=== PATIENT | female | born 1995 | race Hispanic/Latino ===

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

== ENCOUNTER 2017-01-06 14:10 | Emergency (ER) | payer MEDICAID ==
[2017-01-06 14:11] VITALS: BMI 23.0
[2017-01-06 14:35] VITALS: BP 134/74; RESP 20
--- NOTE | 2017-01-06 15:01 | ED PDOC ---
HPI: CCC, URI, Sore Throat Time Seen by Provider: 01/06/17 14:44 Chief Complaint (Nursing): Fever Chief Complaint (Provider): Fever History Per: Patient History/Exam Limitations: no limitations Onset/Duration Of Symptoms: Days Current Symptoms Are (Timing): Still Present Additional Complaint(s): 21 y/o female with a past medical history of Type 1 Diabetes who presents to the emergency department with a complaint of a fever, sore throat, body aches, ear pain, and cough since yesterday, 01/05/2017. States pain with swallowing. Reports taking Dayquil today around 11 am. Denies nausea, vomiting, diarrhea, chest pain, shortness of breath, or vision changes. PMD: Dr. Stanley Cox MD Past Medical History Reviewed: Historical Data, Nursing Documentation, Vital Signs Vital Signs: Last Vital Signs Temp 99.3 F 01/06/17 14:33 Pulse 108 H 01/06/17 14:33 Resp 20 01/06/17 14:33 BP 134/74 01/06/17 14:33 Pulse Ox 99 01/06/17 15:46 - Medical History PMH: Diabetes (type I) Denies: Chronic Kidney Disease - Family History Family History: States: Unknown Family Hx, Hypertension Denies: Diabetes - Living Arrangements Living Arrangements: With Family - Immunization History Hx Tetanus Toxoid Vaccination: Yes Hx Influenza Vaccination: Yes Hx Pneumococcal Vaccination: No - Home Medications Home Medications: Ambulatory Orders Medication Instructions Recorded Insulin Lispro [humALOG] 03/14/16 Dicyclomine [Bentyl] 20 mg PO Q8 PRN #30 tab 08/13/16 Ondansetron ODT [Zofran ODT] 4 mg PO TID #21 odt 08/13/16 Dicyclomine [Bentyl] 20 mg PO BID PRN #30 tab 10/16/16 Omeprazole Magnesium [Prilosec Otc] 20 mg PO DAILY #30 tcp 10/16/16 Ondansetron [Zofran] 4 mg PO Q8H PRN #30 tab 10/16/16 Famotidine [Pepcid] 20 mg PO Q12 #20 tab 12/29/16 Ondansetron [Zofran] 4 mg PO Q8H #10 tab 12/29/16 Azithromycin [Zithromax] 500 mg PO DAILY 5 Days 01/06/17 Ibuprofen [Motrin] 600 mg PO TID 7 Days 01/06/17 - Allergies Allergies/Adverse Reactions: Allergies Allergy/AdvReac Type Severity Reaction Status Date / Time Penicillins Allergy unknown Verified 01/06/17 14:32 Review of Systems ROS Statement: Except As Marked, All Systems Reviewed And Found Negative Constitutional: Positive for: Fever, Other (Body aches) Eyes: Negative for: Vision Change ENT: Positive for: Ear Pain, Throat Pain (Sore throat; able to swallow with pain ) Cardiovascular: Negative for: Chest Pain Respiratory: Positive for: Cough. Negative for: Shortness of Breath Gastrointestinal: Negative for: Nausea, Vomiting, Diarrhea Physical Exam - Reviewed Nursing Documentation Reviewed: Yes Vital Signs Reviewed: Yes - Physical Exam Appears: Positive for: Non-toxic, No Acute Distress Head Exam: Positive for: ATRAUMATIC, NORMAL INSPECTION, NORMOCEPHALIC Skin: Positive for: Normal Color, Warm, Dry Eye Exam: Positive for: Normal appearance. Negative for: Conjunctival injection ENT: Positive for: Pharyngeal Erythema (Mild). Negative for: Normal ENT Inspection, Tonsillar Exudate (No tonsillar enlargement), Other (No uvula deviation) Neck: Positive for: Normal, Painless ROM, Supple Cardiovascular/Chest: Positive for: Regular Rate, Rhythm. Negative for: Murmur Respiratory: Positive for: Normal Breath Sounds. Negative for: Accessory Muscle Use, Respiratory Distress Gastrointestinal/Abdominal: Positive for: Normal Exam, Soft. Negative for: Tenderness Back: Positive for: Normal Inspection. Negative for: L CVA Tenderness, R CVA Tenderness Extremity: Positive for: Normal ROM. Negative for: Pedal Edema Neurologic/Psych: Positive for: Alert, Oriented - Laboratory Results Interpretation Of Abn Labs: strep pos - ECG O2 Sat by Pulse Oximetry: 99 (RA) Pulse Ox Interpretation: Normal - Progress ED Course And Treament: 1626: Strep po. Fu with pcp. AAOx3. Tolerated PO. Rx antibiotics. Medical Decision Making Medical Decision Making: Time: 14:44 Initial impression: Cough Initial plan: --AccuCheck: 126 --ED Urine (POC) --Motrin 600 mg PO --Rapid Strep Group --Revaluation Time: 15:08 --Group A Beta Strep Ag: Positive Scribe Attestation: Documented by Heidy Estevez, acting as a scribe for Jose Rios MD. Provider Scribe Attestation: All medical record entries made by the Scribe were at my direction and personally dictated by me. I have reviewed the chart and agree that the record accurately reflects my personal performance of the history, physical exam, medical decision making, and the department course for this patient. I have also personally directed, reviewed, and agree with the discharge instructions and disposition. Disposition - Clinical Impression Clinical Impression: Strep pharyngitis - Patient ED Disposition Is Patient to be Admitted: No Counseled Patient/Family Regarding: Studies Performed, Diagnosis, Need For Followup, Rx Given - Disposition Referrals: [facility] [Outside] - 01/07/17 Disposition: Routine/Home Disposition Time: 16:27 Condition: STABLE Additional Instructions: Return if not better in 3 days. Prescriptions: Azithromycin [Zithromax] 500 mg PO DAILY 5 Days Ibuprofen [Motrin] 600 mg PO TID 7 Days Instructions: Pharyngitis (ED) Forms: [employer] ([place])
[2017-01-06 16:50] VITALS: PULSE 90; TEMP 98.2; O2SAT 100
== END 2017-01-06 16:49 | disposition home or self-care (01) ==
LOC: H.ER 14:10
DX: J02.0 Streptococcal pharyngitis (principal); E11.9 Type 2 diabetes mellitus without complications; Z79.4 Long term (current) use of insulin; Z88.0 Allergy status to penicillin

== ENCOUNTER 2017-01-24 08:08 | Emergency (ER) | payer MEDICAID ==
[2017-01-24 08:16] VITALS: BMI 22.1
[2017-01-24 08:17] VITALS: BP 114/50; PULSE 89; RESP 19; TEMP 98.7; O2SAT 100
--- NOTE | 2017-01-24 09:13 | ED PDOC ---
Hyperglycemia/Hypoglycemia Time Seen by Provider: 01/24/17 09:03 Chief Complaint (Nursing): High Blood Sugar : The patient does not have any of the infectious symptoms listed except for those marked. Additional Complaint(s): 21F c/o cold symptoms- runny nose, sore throat, dry cough for 5 days and high bg that she noted today. she says bg normally 150-300 but today was over 400. she had bronchitis recently she says this feels similar. no fever or dysuria. she has been taking her insulin as usual. Past Medical History Vital Signs: Last Vital Signs Temp 98.7 F 01/24/17 08:16 Pulse 89 01/24/17 08:16 Resp 19 01/24/17 08:16 BP 114/50 L 01/24/17 08:16 Pulse Ox 100 01/24/17 08:16 - Medical History PMH: Diabetes (type I) - Family History Family History: States: Hypertension Denies: Diabetes - Immunization History Hx Tetanus Toxoid Vaccination: Yes Hx Influenza Vaccination: Yes Hx Pneumococcal Vaccination: No - Home Medications Home Medications: Ambulatory Orders Medication Instructions Recorded Insulin Lispro [humALOG] 03/14/16 Dicyclomine [Bentyl] 20 mg PO Q8 PRN #30 tab 08/13/16 Ondansetron ODT [Zofran ODT] 4 mg PO TID #21 odt 08/13/16 Dicyclomine [Bentyl] 20 mg PO BID PRN #30 tab 10/16/16 Omeprazole Magnesium [Prilosec Otc] 20 mg PO DAILY #30 tcp 10/16/16 Ondansetron [Zofran] 4 mg PO Q8H PRN #30 tab 10/16/16 Famotidine [Pepcid] 20 mg PO Q12 #20 tab 12/29/16 Ondansetron [Zofran] 4 mg PO Q8H #10 tab 12/29/16 Azithromycin [Zithromax] 500 mg PO DAILY 5 Days 01/06/17 Ibuprofen [Motrin] 600 mg PO TID 7 Days 01/06/17 Benzonatate [Tessalon Perles] 100 mg PO Q12H PRN #10 sgl 01/24/17 Orphenadrine [Norflex] 100 mg PO BID PRN #10 ter 01/24/17 - Allergies Allergies/Adverse Reactions: Allergies Allergy/AdvReac Type Severity Reaction Status Date / Time Penicillins Allergy unknown Verified 01/06/17 14:32 Review of Systems Constitutional: Negative for: Fever, Chills ENT: Positive for: Nose Pain Cardiovascular: Positive for: Chest Pain (with cough) Respiratory: Positive for: Cough. Negative for: Shortness of Breath, Sputum Gastrointestinal: Positive for: Nausea. Negative for: Vomiting, Abdominal Pain , Diarrhea Genitourinary Female: Negative for: Dysuria Physical Exam - Physical Exam Appears: Positive for: Well, Non-toxic, No Acute Distress Head Exam: Positive for: ATRAUMATIC Skin: Positive for: Warm, Dry Eye Exam: Positive for: PERRL Neck: Positive for: Painless ROM, Supple Cardiovascular/Chest: Positive for: Regular Rate, Rhythm Respiratory: Positive for: Normal Breath Sounds. Negative for: Decreased Breath Sounds, Accessory Muscle Use, Crackles, Rales, Rhonchi, Stridor, Wheezing , Respiratory Distress Gastrointestinal/Abdominal: Positive for: Soft. Negative for: Tenderness, Distended, Guarding, Rebound Extremity: Negative for: Swelling Neurologic/Psych: Positive for: Alert, garment manufacturer II-XII, Oriented. Negative for: Motor/Sensory Deficits - Laboratory Results Result Diagrams: 01/24/17 09:30 01/24/17 09:30 - ECG O2 Sat by Pulse Oximetry: 100 Medical Decision Making Medical Decision Making: ecg- nsr 79, nl axis, nl int, no acute ischemia cxr- nad the pt is resting comfortably in no distress, appears well, playing on her phone. I disc results w her, plan for rx, follow up, and rtr. she v/u and agrees w plan. Disposition - Clinical Impression Clinical Impression: Hyperglycemia, Upper respiratory infection, viral - Disposition Referrals: Stanley Cox MD [Primary Care Provider] - Disposition Time: 12:19 Condition: STABLE Additional Instructions: Please follow up with your doctor. Return to the ER for any worsening symptoms or for any other concerns. Prescriptions: Benzonatate [Tessalon Perles] 100 mg PO Q12H PRN #10 sgl PRN Reason: Cough Orphenadrine [Norflex] 100 mg PO BID PRN #10 ter PRN Reason: Pain, Severe (8-10) Instructions: Diabetic Hyperglycemia (ED)
[2017-01-24] MEDS ORDERED: Sodium Chloride 0.9% 1,000 ML IV SCH ×2 (09:15→10:30)
[2017-01-24 09:37] LABS: BASO # 0.1 K/uL (0.0-0.2); BASO % 1.2 % (0.0-2.0); EOS # 0.1 K/uL (0.0-0.7); EOS % 1.9 % (0.0-4.0); LYMPH # 2.5 K/uL (1.0-4.3); LYMPH % 38.4 % (20.0-40.0); MEAN CELL VOLUME 86.5 fl (81.0-99.0); MEAN CORPUSCULAR HGB CONC 33.6 g/dL (33.0-37.0); MEAN PLATELET VOLUME 8.1 fl (7.2-11.7); MONO # 0.4 K/uL (0.0-0.8); MONO % 5.5 % (0.0-10.0); NEUT # 3.4 K/uL (1.8-7.0); NRBC % 0.2 % (0.0-0.0); RED CELL DISTRIBUTION WIDTH 13.4 % (11.5-14.5); WHITE BLOOD COUNT 6.4 K/uL (4.8-10.8)
[2017-01-24 09:38] LABS: RBC URINE 1 /hpf (0-3); URINE BACTERIA RARE (<OCC); URINE BILIRUBIN NEGATIVE (NEGATIVE); URINE BLOOD NEGATIVE (NEGATIVE); URINE COLOR STRAW (YELLOW); URINE GLUCOSE (UA) >=500 mg/dL (Normal); URINE KETONE 20 mg/dL (NEGATIVE); URINE LEUKOCYTE ESTERASE NEG Leu/uL (Negative); URINE PROTEIN NEGATIVE (NEGATIVE); URINE UROBILINOGEN 0.2-1.0 mg/dL (0.2-1.0)
[2017-01-24 09:43] LABS: VENOUS BLOOD GAS BASE EXCESS 2.7 mmol/L (0.0-2.0); VENOUS BLOOD GAS PCO2 55 mmHg (40-60); VENOUS BLOOD PH 7.34 (7.32-7.43)
[2017-01-24 09:45] LABS: ALB/GLOB RATIO 1.3 (1.0-2.1); ALKALINE PHOSPHATASE 114 U/L (38-126); ALT/SGPT 53 U/L (9-52); AST/SGOT 30 U/L (14-36); BILIRUBIN,TOTAL 0.6 mg/dl (0.2-1.3); BLOOD UREA NITROGEN 14 mg/dl (7-17); CALCIUM 9.3 mg/dL (8.4-10.2); CARBON DIOXIDE 26 mmol/L (22-30); CHLORIDE 94 mmol/L (98-107); GFR AFRICAN-AMERICAN > 60; POTASSIUM 4.7 MMOL/L (3.6-5.0); SODIUM 132 mmol/l (132-148); TOTAL PROTEIN 7.8 G/DL (6.3-8.2)
[2017-01-24 09:57] LABS: GLUCOSE,RANDOM 548 mg/dL (65-105)
[2017-01-24] MEDS ORDERED: Insulin Regular 100 units/ml IV STA (10:15)
--- NOTE | 2017-01-24 10:27 | RAD ---
HISTORY: cough COMPARISON: Comparison chest 10/16/2016 TECHNIQUE: Chest PA and lateral FINDINGS: LUNGS: No active pulmonary disease. PLEURA: No significant pleural effusion identified. No pneumothorax apparent. CARDIOVASCULAR: Normal. OSSEOUS STRUCTURES: No significant abnormalities. VISUALIZED UPPER ABDOMEN: Normal. OTHER FINDINGS: None. IMPRESSION: No active disease.
--- NOTE | 2017-01-25 01:10 | CARD ---
APPROVED REPORT EKG Measurement Heart [id number] AR 128P56 [id number] <Conclusion> Normal sinus rhythm Low voltage QRS Borderline ECG
== END 2017-01-24 12:19 | disposition home or self-care (01) ==
LOC: H.ER 08:08 → SUPCPDRO 08:08 → H.ER 12:19
DX: E11.65 Type 2 diabetes mellitus with hyperglycemia (principal); J06.9 Acute upper respiratory infection, unspecified; Z79.4 Long term (current) use of insulin; Z88.0 Allergy status to penicillin

== ENCOUNTER 2017-04-16 09:24 | Observation (INO) | payer MEDICAID, OTHER ==
[2017-04-16 09:33] VITALS: BMI 22.6
[2017-04-16 09:49] VITALS: O2SAT 98
[2017-04-16 10:13] LABS: ABG ALLEN TEST YES; ARTERIAL BLOOD GAS HCO3 25.3 mmol/L (21-28); ARTERIAL BLOOD GAS O2 CAPACITY 19.8 mL/dL (16-24); ARTERIAL BLOOD GAS O2 CONTENT 8.2 ML/dL (15-23); ARTERIAL BLOOD GAS PH 7.36 (7.35-7.45); ARTERIAL BLOOD GAS PO2 20 mm/Hg (80-100); ARTERIAL BLOOD HGB O2 SAT 39.1 % (95.0-98.0); CARBOXYHEMOGLOBIN 1.8 % (0.5-1.5); HHB 55.4 % (0.0-5.0); METHEMOGLOBIN 3.6 % (0.0-3.0)
--- NOTE | 2017-04-16 10:17 | ED PDOC ---
Hyperglycemia/Hypoglycemia Time Seen by Provider: 04/16/17 09:47 Chief Complaint (Nursing): Dizziness/Lightheaded History Per: Patient Onset/Duration Of Symptoms: Gradual Current Symptoms Are (Timing): Still Present Severity: Moderate Current Diabetic Medications: Insulin Associated Infectious Symptoms: Urinary Frequency. denies: Nausea, Vomiting : The patient does not have any of the infectious symptoms listed except for those marked. Treatment Prior To Provider Evaluation: None Response To Treatment: Good Response Past Medical History Reviewed: Historical Data, Nursing Documentation, Vital Signs Vital Signs: Last Vital Signs Temp 97.1 F L 04/16/17 09:32 Pulse 73 04/16/17 09:32 Resp 18 04/16/17 09:32 BP 111/62 04/16/17 09:32 Pulse Ox 98 04/16/17 09:46 - Medical History PMH: Diabetes (type I) Denies: Chronic Kidney Disease - Surgical History Surgical History: No Surg Hx - Family History Family History: States: Hypertension Denies: Diabetes - Living Arrangements Living Arrangements: With Family (aunt) - Social History Current smoker - smoking cessation education provided: No Alcohol: None - Immunization History Hx Tetanus Toxoid Vaccination: Yes Hx Influenza Vaccination: Yes Hx Pneumococcal Vaccination: No - Home Medications Home Medications: Ambulatory Orders Medication Instructions Recorded Insulin Lispro [humALOG] 03/14/16 Dicyclomine [Bentyl] 20 mg PO Q8 PRN #30 tab 08/13/16 Ondansetron ODT [Zofran ODT] 4 mg PO TID #21 odt 08/13/16 Dicyclomine [Bentyl] 20 mg PO BID PRN #30 tab 10/16/16 Omeprazole Magnesium [Prilosec Otc] 20 mg PO DAILY #30 tcp 10/16/16 Ondansetron [Zofran] 4 mg PO Q8H PRN #30 tab 10/16/16 Famotidine [Pepcid] 20 mg PO Q12 #20 tab 12/29/16 Ondansetron [Zofran] 4 mg PO Q8H #10 tab 12/29/16 Azithromycin [Zithromax] 500 mg PO DAILY 5 Days 01/06/17 Ibuprofen [Motrin] 600 mg PO TID 7 Days 01/06/17 Benzonatate [Tessalon Perles] 100 mg PO Q12H PRN #10 sgl 01/24/17 Orphenadrine [Norflex] 100 mg PO BID PRN #10 ter 01/24/17 - Allergies Allergies/Adverse Reactions: Allergies Allergy/AdvReac Type Severity Reaction Status Date / Time Penicillins Allergy unknown Verified 01/06/17 14:32 Review of Systems ROS Statement: Except As Marked, All Systems Reviewed And Found Negative Constitutional: Negative for: Fever, Chills Respiratory: Negative for: Cough Gastrointestinal: Negative for: Nausea, Vomiting Genitourinary Female: Positive for: Frequency. Negative for: Dysuria, Hematuria , Vaginal Discharge Neurological: Positive for: Weakness Physical Exam - Reviewed Nursing Documentation Reviewed: Yes Vital Signs Reviewed: Yes - Physical Exam Appears: Positive for: Well, Non-toxic, No Acute Distress Head Exam: Positive for: ATRAUMATIC, NORMAL INSPECTION, NORMOCEPHALIC Skin: Positive for: Normal Color, Warm, DRY Eye Exam: Positive for: EOMI, Normal appearance, PERRL ENT: Positive for: Normal ENT Inspection Neck: Positive for: Normal, Painless ROM Cardiovascular/Chest: Positive for: Regular Rate, Rhythm Respiratory: Positive for: CNT, Normal Breath Sounds Gastrointestinal/Abdominal: Positive for: Normal Exam, Bowel Sounds, Soft Back: Positive for: Normal Inspection Extremity: Positive for: Normal ROM Neurologic/Psych: Positive for: Alert, Oriented - Laboratory Results Result Diagrams: 04/16/17 10:14 04/16/17 10:14 - ECG O2 Sat by Pulse Oximetry: 98 Medical Decision Making Medical Decision Making: patient without evidence of DKA. Sugar has improved with fluids and insulin. Will discharge. Disposition - Clinical Impression Clinical Impression: Hyperglycemia due to type 1 diabetes mellitus - Patient ED Disposition Is Patient to be Admitted: No Doctor Will See Patient In The: Office Counseled Patient/Family Regarding: Diagnosis, Need For Followup - Disposition Disposition: Routine/Home Disposition Time: 14:30 Condition: IMPROVED - POA Present On Arrival: None
[2017-04-16 10:18] LABS: BASO % 0.6 % (0.0-2.0); EOS % 0.9 % (0.0-4.0); HEMATOCRIT 43.8 % (34.0-47.0); LYMPH # 1.8 K/uL (1.0-4.3); MEAN CORPUSCULAR HEMOGLOBIN 28.3 pg (27.0-31.0); MEAN CORPUSCULAR HGB CONC 31.8 g/dL (33.0-37.0); MEAN PLATELET VOLUME 7.5 fl (7.2-11.7); MONO # 0.2 K/uL (0.0-0.8); MONO % 4.5 % (0.0-10.0); NEUT # 2.2 K/uL (1.8-7.0); RED CELL DISTRIBUTION WIDTH 13.7 % (11.5-14.5); WHITE BLOOD COUNT 4.3 K/uL (4.8-10.8)
[2017-04-16 10:20] LABS: MEAN CELL VOLUME 88.9 fl (81.0-99.0)
[2017-04-16 10:34] LABS: ALB/GLOB RATIO 1.5 (1.0-2.1); ALKALINE PHOSPHATASE 100 U/L (38-126); ALT/SGPT 25 U/L (9-52); AST/SGOT 20 U/L (14-36); BILIRUBIN,TOTAL 0.8 mg/dl (0.2-1.3); BLOOD UREA NITROGEN 13 mg/dl (7-17); CALCIUM 9.4 mg/dL (8.4-10.2); CARBON DIOXIDE 28 mmol/L (22-30); CHLORIDE 94 mmol/L (98-107); GFR AFRICAN-AMERICAN > 60; SODIUM 130 mmol/l (132-148); TOTAL PROTEIN 7.1 G/DL (6.3-8.2)
[2017-04-16 10:37] LABS: POTASSIUM 5.4 MMOL/L (3.6-5.0)
[2017-04-16 10:38] LABS: GLUCOSE,RANDOM 620 mg/dL (65-105)
[2017-04-16] MEDS ORDERED: Insulin Regular 100 units/ml SC STA ×2 (11:29→12:38)
[2017-04-16] MEDS ORDERED: Insulin Regular 100 units/ml ONE ×2 (11:41→12:42)
[2017-04-16] MEDS ORDERED: Sodium Chloride 0.9% 1,000 ML IV STA (12:38)
[2017-04-16 15:35] VITALS: BP 116/75; PULSE 81; RESP 14; TEMP 98.2
== END 2017-04-16 15:00 | disposition home or self-care (01) ==
LOC: H.ER 09:24 → H.EROBSV 12:39
PROVIDERS: ADMIT Emergency Medicine; ATTEND Emergency Medicine
DX: E10.65 Type 1 diabetes mellitus with hyperglycemia (principal)
CPT/HCPCS: 80053; 82803; 82948; 85025; 96361; 96374; 99284; G0378; J2405; J7040

== ENCOUNTER 2017-07-31 01:54 | Emergency (ER) | payer OTHER ==
[2017-07-31 01:55] VITALS: BMI 22.6
[2017-07-31 02:13] VITALS: BP 131/74; PULSE 84; RESP 18; TEMP 97.8; O2SAT 98
[2017-07-31] MEDS ORDERED: Dextrose 50% SYRINGE Inj (50 ml) IVP ONE (02:22)
[2017-07-31] MEDS ORDERED: Sodium Chloride 0.9% 1,000 ML IV STA (02:23)
[2017-07-31 02:45] LABS: BASO % 0.3 % (0.0-2.0); EOS # 0.2 K/uL (0.0-0.7); EOS % 2.8 % (0.0-4.0); HEMOGLOBIN 14.7 g/dL (12.0-16.0); LYMPH # 2.5 K/uL (1.0-4.3); LYMPH % 41.8 % (20.0-40.0); MEAN CELL VOLUME 88.2 fl (81.0-99.0); MEAN CORPUSCULAR HEMOGLOBIN 28.9 pg (27.0-31.0); MEAN CORPUSCULAR HGB CONC 32.8 g/dL (33.0-37.0); MEAN PLATELET VOLUME 7.7 fl (7.2-11.7); MONO # 0.5 K/uL (0.0-0.8); MONO % 8.2 % (0.0-10.0); NEUT # 2.9 K/uL (1.8-7.0); NEUT % 46.9 % (50.0-75.0); NRBC % 0.1 % (0.0-0.0); RBC 5.07 Mil/uL (3.80-5.20); RED CELL DISTRIBUTION WIDTH 13.2 % (11.5-14.5); WHITE BLOOD COUNT 6.1 K/uL (4.8-10.8)
--- NOTE | 2017-07-31 02:53 | ED PDOC ---
HPI: Abdomen Time Seen by Provider: 07/31/17 02:13 Chief Complaint (Nursing): Abdominal Pain Chief Complaint (Provider): Abdominal Pain, Vomiting History Per: Patient History/Exam Limitations: no limitations Onset/Duration Of Symptoms: Days (x2) Current Symptoms Are (Timing): Still Present Associated Symptoms: Vomiting Additional Complaint(s): Margareth Cheek is a 22-year-old female with a past medical history of insulin- dependent diabetes mellitus, who presents to the emergency department complaining of abdominal pain since yesterday. She began vomiting this morning and had three episodes total, non-bloody, non-bilious. Patient reports eating throughout the day including candy, but her blood sugar has remained low so she has not taken her insulin. Denies any diarrhea, fever, or urinary symptoms. LMP was 3 weeks ago. Upon arrival, patient vomited in the ER. PMD: Dr. Dr. Oswaldo Bernal Past Medical History Reviewed: Historical Data, Nursing Documentation, Vital Signs Vital Signs: Last Vital Signs Temp 97.8 F 07/31/17 02:08 Pulse 84 07/31/17 02:08 Resp 18 07/31/17 02:08 BP 131/74 07/31/17 02:08 Pulse Ox 98 07/31/17 05:31 - Medical History PMH: Diabetes (type I) Denies: HIV, Chronic Kidney Disease - Surgical History Surgical History: No Surg Hx - Family History Family History: States: Hypertension Denies: Diabetes - Social History Current smoker - smoking cessation education provided: No Alcohol: None Drugs: Denies - Immunization History Hx Tetanus Toxoid Vaccination: Yes Hx Influenza Vaccination: Yes Hx Pneumococcal Vaccination: No - Home Medications Home Medications: Ambulatory Orders Medication Instructions Recorded Insulin Lispro [humALOG] 0 - 10 units SC TID PRN 04/23/17 Insulin Glargine, Recombina 20 units SC DAILY #0 04/24/17 [Lantus] Ondansetron ODT [Zofran ODT] 4 mg PO Q8 PRN #12 odt 07/31/17 - Allergies Allergies/Adverse Reactions: Allergies Allergy/AdvReac Type Severity Reaction Status Date / Time Penicillins Allergy unknown Verified 07/31/17 02:13 Review of Systems ROS Statement: Except As Marked, All Systems Reviewed And Found Negative Constitutional: Negative for: Fever Gastrointestinal: Positive for: Nausea, Vomiting, Abdominal Pain. Negative for : Diarrhea Genitourinary Female: Negative for: Dysuria, Frequency, Incontinence Physical Exam - Reviewed Nursing Documentation Reviewed: Yes Vital Signs Reviewed: Yes - Physical Exam Appears: Positive for: Non-toxic, No Acute Distress Head Exam: Positive for: ATRAUMATIC, NORMAL INSPECTION, NORMOCEPHALIC Skin: Positive for: Normal Color, Warm, Dry Eye Exam: Positive for: EOMI, Normal appearance, PERRL Neck: Positive for: Normal, Painless ROM, Supple Cardiovascular/Chest: Positive for: Regular Rate, Rhythm. Negative for: Murmur Respiratory: Positive for: Normal Breath Sounds. Negative for: Accessory Muscle Use, Respiratory Distress Gastrointestinal/Abdominal: Positive for: Soft, Tenderness (mild epigastric tenderness). Negative for: Distended Back: Positive for: Normal Inspection. Negative for: Vertebral Tenderness Extremity: Positive for: Normal ROM. Negative for: Pedal Edema, Deformity Neurologic/Psych: Positive for: Alert, Oriented (x3) - Laboratory Results Result Diagrams: 07/31/17 02:42 07/31/17 02:42 - ECG O2 Sat by Pulse Oximetry: 98 (RA) Pulse Ox Interpretation: Normal - Progress Re-evaluation Time: 05:30 Condition: Re-examined, Improved Medical Decision Making Medical Decision Making: Time: 02:23 Initial Impression: Hypoglycemia (likely due to lack of nutrition), Epigastric abdominal pain with vomiting Differentials include gastritis, pancreatitis, and gall bladder disease. Initial Plan: * CMP * Lipase * CBC w/ differential * ED urine * ED urine dipstick * Dextrose 50& IVP * Sodium chloride 1000 ml IV at 1000 mls/hr * Zofran 4 mg IV * Reevaluation Labs reviewed, and are grossly normal. Still pending urine. Time: 04:03 POC Glucose is 79. Scribe Attestation: Documented by Radha Allen, acting as a screllen Ma MD Provider Scribe Attestation: All medical record entries made by the Scribe were at my direction and personally dictated by me. I have reviewed the chart and agree that the record accurately reflects my personal performance of the history, physical exam, medical decision making, and the department course for this patient. I have also personally directed, reviewed, and agree with the discharge instructions and disposition. Disposition - Clinical Impression Clinical Impression: Abdominal pain, Hypoglycemia - Patient ED Disposition Is Patient to be Admitted: No Doctor Will See Patient In The: Office Counseled Patient/Family Regarding: Studies Performed, Diagnosis, Need For Followup - Disposition Referrals: Oswaldo Bernal MD [Medical Doctor] - Disposition: Routine/Home Disposition Time: 05:30 Condition: GOOD Additional Instructions: Return for worsening. Follow up with your PCP in 2-3 days. Prescriptions: Ondansetron ODT [Zofran ODT] 4 mg PO Q8 PRN #12 odt PRN Reason: Nausea/Vomiting Instructions: Diabetic Hypoglycemia (ED), Abdominal Pain (ED)
[2017-07-31 03:01] LABS: ALB/GLOB RATIO 1.2 (1.0-2.1); ALBUMIN 4.5 g/dL (3.5-5.0); ALT/SGPT 21 U/L (9-52); AST/SGOT 23 U/L (14-36); BLOOD UREA NITROGEN 11 mg/dl (7-17); CALCIUM 9.3 mg/dL (8.4-10.2); GFR AFRICAN-AMERICAN > 60; GFR NON-AFRICAN AMERICAN > 60; LIPASE 41 U/L (23-300)
== END 2017-07-31 05:44 | disposition home or self-care (01) ==
LOC: H.ER 01:54
DX: E11.65 Type 2 diabetes mellitus with hyperglycemia (principal); R10.9 Unspecified abdominal pain; Z79.4 Long term (current) use of insulin; Z88.0 Allergy status to penicillin
CPT/HCPCS: 80053; 82948; 83690; 85025; 96361; 96374; 96375; 99281; J2405; J7040

== ENCOUNTER 2018-02-24 09:08 | Emergency (ER) | payer OTHER, SELFPAY ==
[2018-02-24 09:08] VITALS: BMI 22.6
[2018-02-24 09:18] VITALS: TEMP 98.3; O2SAT 100
--- NOTE | 2018-02-24 10:33 | ED PDOC ---
Hyperglycemia/Hypoglycemia Time Seen by Provider: 02/24/18 09:40 Chief Complaint (Nursing): High Blood Sugar Chief Complaint (Provider): High Blood Sugar History Per: Patient History/Exam Limitations: no limitations Onset/Duration Of Symptoms: Mins Current Symptoms Are (Timing): Still Present Current Diabetic Medications: Insulin : The patient does not have any of the infectious symptoms listed except for those marked. Additional Complaint(s): 22 y/o female presents to the ED for possible high blood sugar evaluation. Patient states she measured her sugar at home which resulted around 600s. Patient reports of giving herself 25 united of Insulin this morning. Patient is also complaining of epigastric and left lower quadrant tenderness associated with two episodes of vomiting, constipation and chills. Denies fever, dysuria, hematuria, vaginal discharge and vaginal bleeding. PMD: Non [facility] Provider Past Medical History Reviewed: Historical Data, Nursing Documentation, Vital Signs Vital Signs: Last Vital Signs Temp 98.3 F 02/24/18 09:17 Pulse 88 02/24/18 09:17 Resp 16 02/24/18 09:17 BP 115/70 02/24/18 09:17 Pulse Ox 100 02/24/18 09:17 - Medical History PMH: Diabetes (type I) Denies: HIV, Chronic Kidney Disease - Surgical History Surgical History: No Surg Hx - Family History Family History: States: Hypertension Denies: Diabetes - Immunization History Hx Tetanus Toxoid Vaccination: Yes Hx Influenza Vaccination: Yes Hx Pneumococcal Vaccination: No - Home Medications Home Medications: Ambulatory Orders Medication Instructions Recorded Insulin Lispro [humALOG] 0 - 10 units SC TID PRN 04/23/17 Insulin Glargine, Recombina 20 units SC DAILY #0 04/24/17 [Lantus] Ondansetron ODT [Zofran ODT] 4 mg PO Q8 PRN #12 odt 07/31/17 Polyethylene Glycol 3350 [Miralax] 1 tbs PO DAILY PRN #1 bottle 02/24/18 - Allergies Allergies/Adverse Reactions: Allergies Allergy/AdvReac Type Severity Reaction Status Date / Time Penicillins Allergy unknown Verified 07/31/17 02:13 Review of Systems ROS Statement: Except As Marked, All Systems Reviewed And Found Negative Constitutional: Positive for: Sweats, Other (high blood sugar). Negative for: Fever Gastrointestinal: Positive for: Vomiting, Abdominal Pain, Constipation Physical Exam - Reviewed Nursing Documentation Reviewed: Yes Vital Signs Reviewed: Yes - Physical Exam Appears: Positive for: No Acute Distress Head Exam: Positive for: ATRAUMATIC, NORMOCEPHALIC Skin: Positive for: Normal Color, Warm, Dry Eye Exam: Positive for: Normal appearance, EOMI, PERRL Neck: Positive for: Normal, Painless ROM Cardiovascular/Chest: Negative for: Bradycardia, Tachycardia Respiratory: Negative for: Accessory Muscle Use, Respiratory Distress Gastrointestinal/Abdominal: Positive for: Normal Exam, Tenderness (epigastric and left lower quadrant ) Extremity: Positive for: Normal ROM. Negative for: Deformity Neurologic/Psych: Positive for: Alert, Oriented. Negative for: Motor/Sensory Deficits - Laboratory Results Result Diagrams: 02/24/18 10:30 02/24/18 10:30 - ECG O2 Sat by Pulse Oximetry: 100 (RA) Pulse Ox Interpretation: Normal Medical Decision Making Medical Decision Making: Time: 1030 Plan: -- CMP -- ED Urine -- ED Urine Dipstick -- CBC with differentials -- Glucose, Blood, POC -- ABD 2 Views (Flat/Up or Decub) XR -- Urinalysis -- Abdomen Complete US Time: 1109 Plan: -- Abd complete US -- Pelvic Non OB B Scan Limited US Time: 1157 Plan: -- Venous Blood Gas -- Humulin R 10 units IV Inj -- Sodium Chloride 1000 mls/hr Time: 1235 ABDOMEN US RESULTS FINDINGS: LIVER: Measures 17.4 cm. Normal, stable echogenicity of the liver parenchyma. No mass. No intrahepatic bile duct dilatation. GALLBLADDER: Unremarkable. No gallstones. No reported sonographic Garnett sign. COMMON BILE DUCT: Measures 2.8 mm. No stones. No dilatation. PANCREAS: Unremarkable as visualized. No mass. No ductal dilatation. RIGHT KIDNEY: Measures 13.3cm. Normal echogenicity. No calculus, mass, or hydronephrosis. LEFT KIDNEY: Measures 11.4cm. Normal echogenicity. No calculus, mass, or hydronephrosis. SPLEEN: Normal in size and contour, measuring 8.7 cm. No mass. AORTA: No aneurysmal dilatation. IVC: Unremarkable. OTHER FINDINGS: Images submitted obtained at the area the patient's tenderness in the left lower quadrant appear unremarkable and largely reflect bowel. IMPRESSION: Unremarkable abdominal sonogram. No significant interval change in right upper quadrant images as compared prior limited abdomen ultrasound 10/16/2016. Time: 1237 PELVIS US RESULTS FINDINGS: UTERUS: Measures 8.5 x 4.3 x 2.8 cm. Uterus is anteverted. No fibroid or other mass lesion seen. ENDOMETRIUM: Measures 11.0 mm in diameter. Unremarkable. CERVIX: No cervical abnormality identified. RIGHT OVARY: Measures 4.2 x 3.1 x 2.0 cm. No solid mass. Normal flow. LEFT OVARY: Measures 3.5 x 3.1 x 2.1 cm. No solid mass. Normal flow. FREE FLUID: No significant free fluid noted. OTHER FINDINGS: None. IMPRESSION: Unremarkable pelvic ultrasound. ___ Scribe Attestation: Documented by Micha Mcmahon acting as a scribe for Dr. Madhuri Becerril MD. Provider Scribe Attestation: All medical record entries made by the Scribe were at my direction and personally dictated by me. I have reviewed the chart and agree that the record accurately reflects my personal performance of the history, physical exam, medical decision making, and the department course for this patient. I have also personally directed, reviewed, and agree with the discharge instructions and disposition. Disposition - Clinical Impression Clinical Impression: Hyperglycemia due to type 1 diabetes mellitus, Constipation - Disposition Disposition: Routine/Home Disposition Time: 14:41 Condition: IMPROVED Additional Instructions: FOLLOW-UP WITH PMD WITHIN 2 DAYS FOR REEVALUATION. Prescriptions: Polyethylene Glycol 3350 [Miralax] 1 tbs PO DAILY PRN #1 bottle PRN Reason: Constipation Instructions: Constipation in Adults, Hyperglycemia, Adult Forms: [employer] (Pashto)
[2018-02-24 10:40] LABS: BASO % 0.5 % (0.0-2.0); EOS % 0.5 % (0.0-4.0); HEMOGLOBIN 14.7 g/dL (12.0-16.0); LYMPH # 2.9 K/uL (1.0-4.3); LYMPH % 32.3 % (20.0-40.0); MEAN CELL VOLUME 88.1 fl (81.0-99.0); MEAN CORPUSCULAR HEMOGLOBIN 29.7 pg (27.0-31.0); MEAN CORPUSCULAR HGB CONC 33.7 g/dL (33.0-37.0); MEAN PLATELET VOLUME 7.6 fl (7.2-11.7); MONO # 0.3 K/uL (0.0-0.8); MONO % 3.6 % (0.0-10.0); NEUT # 5.7 K/uL (1.8-7.0); NEUT % 63.1 % (50.0-75.0); NRBC % 0.1 % (0.0-0.0); RBC 4.94 Mil/uL (3.80-5.20); RED CELL DISTRIBUTION WIDTH 13.6 % (11.5-14.5); WHITE BLOOD COUNT 9.1 K/uL (4.8-10.8)
[2018-02-24 10:42] LABS: SQUAMOUS EPITHIAL 1 /hpf (0-5); URINE BILIRUBIN NEGATIVE (NEGATIVE); URINE BLOOD NEGATIVE (NEGATIVE); URINE CLARITY CLEAR (Clear); URINE COLOR STRAW (YELLOW); URINE GLUCOSE (UA) >=500 mg/dL (Normal); URINE LEUKOCYTE ESTERASE NEG Leu/uL (Negative); URINE PROTEIN NEGATIVE (NEGATIVE); URINE UROBILINOGEN 0.2-1.0 mg/dL (0.2-1.0)
[2018-02-24 10:57] LABS: ALB/GLOB RATIO 1.2 (1.0-2.1); ALBUMIN 4.2 g/dL (3.5-5.0); ALT/SGPT 23 U/L (9-52); AST/SGOT 25 U/L (14-36); BLOOD UREA NITROGEN 13 mg/dl (7-17); CALCIUM 9.9 mg/dL (8.4-10.2); GFR NON-AFRICAN AMERICAN > 60
[2018-02-24] MEDS ORDERED: Sodium Chloride 0.9% 1,000 ML IV STA ×2 (11:56→13:39)
[2018-02-24] MEDS ORDERED: Insulin Regular 100 units/ml IV STA (11:57)
[2018-02-24] MEDS ORDERED: Insulin Regular 100 units/ml ONE (12:27)
--- NOTE | 2018-02-24 12:36 | US ---
Date of service: 02/24/2018 HISTORY: LLQ pain COMPARISON: Limited abdomen ultrasound 10/16/2016 TECHNIQUE: Sonographic evaluation of the abdomen. FINDINGS: LIVER: Measures 17.4 cm. Normal, stable echogenicity of the liver parenchyma. No mass. No intrahepatic bile duct dilatation. GALLBLADDER: Unremarkable. No gallstones. No reported sonographic Garnett sign. COMMON BILE DUCT: Measures 2.8 mm. No stones. No dilatation. PANCREAS: Unremarkable as visualized. No mass. No ductal dilatation. RIGHT KIDNEY: Measures 13.3cm. Normal echogenicity. No calculus, mass, or hydronephrosis. LEFT KIDNEY: Measures 11.4cm. Normal echogenicity. No calculus, mass, or hydronephrosis. SPLEEN: Normal in size and contour, measuring 8.7 cm. No mass. AORTA: No aneurysmal dilatation. IVC: Unremarkable. OTHER FINDINGS: Images submitted obtained at the area the patient's tenderness in the left lower quadrant appear unremarkable and largely reflect bowel. IMPRESSION: Unremarkable abdominal sonogram. No significant interval change in right upper quadrant images as compared prior limited abdomen ultrasound 10/16/2016.
--- NOTE | 2018-02-24 12:38 | US ---
Date of service: 02/24/2018 HISTORY: L sided pelvic pain COMPARISON: None available. TECHNIQUE: Transabdominal pelvic ultrasound was performed with longitudinal and transverse images submitted for interpretation. FINDINGS: UTERUS: Measures 8.5 x 4.3 x 2.8 cm. Uterus is anteverted. No fibroid or other mass lesion seen. ENDOMETRIUM: Measures 11.0 mm in diameter. Unremarkable. CERVIX: No cervical abnormality identified. RIGHT OVARY: Measures 4.2 x 3.1 x 2.0 cm. No solid mass. Normal flow. LEFT OVARY: Measures 3.5 x 3.1 x 2.1 cm. No solid mass. Normal flow. FREE FLUID: No significant free fluid noted. OTHER FINDINGS: None. IMPRESSION: Unremarkable pelvic ultrasound.
[2018-02-24 12:50] LABS: VENOUS BLOOD GAS BASE EXCESS 2.5 mmol/L (0.0-2.0); VENOUS BLOOD GAS PCO2 55 mmHg (40-60); VENOUS BLOOD GAS PO2 21 mm/Hg (30-55); VENOUS BLOOD PH 7.34 (7.32-7.43)
--- NOTE | 2018-02-24 14:35 | RAD ---
Date of service: 02/24/2018 HISTORY: Constipation COMPARISON: No prior. FINDINGS: BOWEL: Normal. No obstruction. No free air. BONES: Normal. OTHER FINDINGS: None. IMPRESSION: Unremarkable study.
[2018-02-24 15:50] VITALS: BP 118/70; PULSE 82; RESP 18
== END 2018-02-24 15:05 | disposition home or self-care (01) ==
LOC: H.ER 09:08
DX: E11.65 Type 2 diabetes mellitus with hyperglycemia (principal); Z79.4 Long term (current) use of insulin; K59.00 Constipation, unspecified; Z88.0 Allergy status to penicillin
CPT/HCPCS: 74019; 76700; 76857; 80053; 81003; 81025; 82803; 82948; 85025; 99284; J7030

== ENCOUNTER 2018-05-02 02:37 | Emergency (ER) | payer SELFPAY ==
[2018-05-02 02:38] VITALS: BMI 22.6
[2018-05-02] MEDS ORDERED: Sodium Chloride 0.9% 1,000 ML IV STA (03:02)
[2018-05-02 03:50] LABS: BASO # 0.1 K/uL (0.0-0.2); BASO % 0.7 % (0.0-2.0); EOS # 0.1 K/uL (0.0-0.7); EOS % 0.9 % (0.0-4.0); HEMOGLOBIN 13.8 g/dL (12.0-16.0); LYMPH # 2.7 K/uL (1.0-4.3); LYMPH % 28.6 % (20.0-40.0); MEAN CELL VOLUME 87.4 fl (81.0-99.0); MEAN CORPUSCULAR HEMOGLOBIN 29.5 pg (27.0-31.0); MEAN CORPUSCULAR HGB CONC 33.8 g/dL (33.0-37.0); MEAN PLATELET VOLUME 7.5 fl (7.2-11.7); MONO # 0.6 K/uL (0.0-0.8); NEUT % 63.8 % (50.0-75.0); NRBC % 0.1 % (0.0-0.0); RBC 4.67 Mil/uL (3.80-5.20); RED CELL DISTRIBUTION WIDTH 12.9 % (11.5-14.5); WHITE BLOOD COUNT 9.4 K/uL (4.8-10.8)
[2018-05-02 03:55] LABS: BLOOD UREA NITROGEN 15 mg/dl (7-17); CALCIUM 9.3 mg/dL (8.4-10.2); GFR NON-AFRICAN AMERICAN > 60
--- NOTE | 2018-05-02 04:39 | ED PDOC ---
Syncope/Near Syncope/Dizziness Time Seen by Provider: 05/02/18 02:57 Chief Complaint (Nursing): Syncope Chief Complaint (Provider): Syncope History Per: Patient Additional Complaint(s): Margareth Cheek is a 22 year old female with a past medical history of diabetes who presents to the emergency department complaining of constipation, dizziness and numbness around the mouth while washing her face in the bathroom earlier today. She states she did pass out which was witnessed by her cousin. Upon arrival to the emergency department she was complaining of dizziness and constipation, however further states that she does have a long history of co nstipation and that it is not new for her. Patient also states that she was not straining when she passed out in the bathroom and that she does not feel any chest pain, shortness of breath, fever, chills or has had any recent illnesses. PMD: No Family Provider Past Medical History Reviewed: Historical Data, Nursing Documentation, Vital Signs Vital Signs: Last Vital Signs Temp 97.9 F 05/02/18 02:52 Pulse 82 05/02/18 02:52 Resp 16 05/02/18 02:52 BP 120/63 05/02/18 02:52 Pulse Ox 98 05/02/18 02:52 - Medical History PMH: Diabetes (type I) Denies: HIV, Chronic Kidney Disease - Surgical History Surgical History: No Surg Hx - Family History Family History: States: Hypertension Denies: Diabetes - Immunization History Hx Tetanus Toxoid Vaccination: Yes Hx Influenza Vaccination: Yes Hx Pneumococcal Vaccination: No - Home Medications Home Medications: Ambulatory Orders Medication Instructions Recorded Insulin Lispro [humALOG] 0 - 10 units SC TID PRN 04/23/17 Insulin Glargine, Recombina 20 units SC DAILY #0 04/24/17 [Lantus] Ondansetron ODT [Zofran ODT] 4 mg PO Q8 PRN #12 odt 07/31/17 Polyethylene Glycol 3350 [Miralax] 1 tbs PO DAILY PRN #1 bottle 02/24/18 - Allergies Allergies/Adverse Reactions: Allergies Allergy/AdvReac Type Severity Reaction Status Date / Time Penicillins Allergy unknown Verified 07/31/17 02:13 Review of Systems ROS Statement: Except As Marked, All Systems Reviewed And Found Negative Constitutional: Negative for: Fever, Chills ENT: Positive for: Other (numbness around the mouth) Cardiovascular: Negative for: Chest Pain Respiratory: Negative for: Shortness of Breath Gastrointestinal: Positive for: Constipation Neurological: Positive for: Dizziness Physical Exam - Reviewed Nursing Documentation Reviewed: Yes Vital Signs Reviewed: Yes - Physical Exam Appears: Positive for: Well, No Acute Distress Head Exam: Positive for: ATRAUMATIC, NORMOCEPHALIC Skin: Positive for: Normal Color, Warm, Dry Eye Exam: Positive for: Normal appearance, EOMI, PERRL ENT: Positive for: Normal ENT Inspection Neck: Positive for: Normal, Painless ROM, Supple Cardiovascular/Chest: Positive for: Regular Rate, Rhythm. Negative for: Murmur Respiratory: Positive for: Normal Breath Sounds. Negative for: Respiratory Distress Gastrointestinal/Abdominal: Positive for: Normal Exam, Bowel Sounds, Soft. Negative for: Tenderness Back: Positive for: Normal Inspection. Negative for: L CVA Tenderness, R CVA Tenderness, Vertebral Tenderness Extremity: Positive for: Normal ROM. Negative for: Tenderness, Calf Tenderness, Deformity, Swelling Neurologic/Psych: Positive for: Alert, Oriented (x3). Negative for: Motor/Sensory Deficits - Laboratory Results Result Diagrams: 05/02/18 03:37 05/02/18 03:37 - ECG ECG: Positive for: Interpreted By Me, Viewed By Me ECG Rhythm: Positive for: Sinus Rhythm (normal) Rate: 76 O2 Sat by Pulse Oximetry: 98 (RA) Pulse Ox Interpretation: Normal Medical Decision Making Medical Decision Making: Initial time: 02:57 Initial Impression: 22 year old diabetic patient presenting with syncope. Porsha ent is currently well appearing, awake and alert. At this time the etiology is unclear. Initial Plan: --EKG --BMP --ED urine (POC) --ED Urine Dipstick (POC) --CBC with differential --Glucose POC Routine --Sodium Chloride 0-.9% 1,000 ml IV --Toradol 30 mg IVP --Glucose, Blood, POC --Reevaluation 500 Patient is feeling much better Advised plenty of fluid intake Advised patient to followup with Dr. Bernal Return precautions discussed --- Scribe Attestation: Documented by Zaid Hyatt, acting as a scribe for Rell Garcia MD Provider Scribe Attestation: All medical record entries made by the Scribe were at my direction and personally dictated by me. I have reviewed the chart and agree that the record accurately reflects my personal performance of the history, physical exam, medical decision making, and the department course for this patient. I have also personally directed, reviewed, and agree with the discharge instructions and disposition. Disposition - Clinical Impression Clinical Impression: Syncope - Patient ED Disposition Is Patient to be Admitted: No - Disposition Referrals: Oswaldo Bernal MD [Medical Doctor] - Disposition: Routine/Home Disposition Time: 05:00 Condition: STABLE Instructions: Syncope (Fainting) Forms: [employer] (Grenadian)
[2018-05-02 06:14] VITALS: BP 123/68; PULSE 71; RESP 17; TEMP 98.3; O2SAT 99
--- NOTE | 2018-05-02 08:55 | CARD ---
APPROVED REPORT Date of service: 05/02/2018 EKG Measurement Heart [id number] <Conclusion> Normal sinus rhythm prolonged QT abnormal ECG
== END 2018-05-02 06:02 | disposition home or self-care (01) ==
LOC: H.ER 02:37
DX: R55 Syncope and collapse (principal); E11.9 Type 2 diabetes mellitus without complications; Z79.4 Long term (current) use of insulin
CPT/HCPCS: 80048; 81025; 82948; 85025; 93005; 96374; 99285; J1885; J7030

== ENCOUNTER 2018-08-23 09:41 | Emergency (ER) | payer BC, SELFPAY ==
[2018-08-23 09:58] VITALS: BMI 22.1
[2018-08-23] MEDS ORDERED: Sodium Chloride 0.9% 1,000 ML IV STA ×2 (10:18→12:10)
--- NOTE | 2018-08-23 10:40 | ED PDOC ---
HPI: General Adult Time Seen by Provider: 08/23/18 10:06 Chief Complaint (Nursing): High Blood Sugar Chief Complaint (Provider): Fever, weakness, cough History Per: Patient History/Exam Limitations: no limitations Onset/Duration Of Symptoms: Days Have you had recent travel within the past 21 days to any of the following countries: [place], [place], [place] or [place]?: No Other Location:: [facility] Current Symptoms Are (Timing): Still Present Additional History Per: Patient Additional Complaint(s): 23yo female, with history of diabetes, comes to ER reporting cough, fever, bod yaches, abdominal pain and back pain. Patient reports she was recently diagnosed with the flu and was taking Tamiflu, and another unknown medication. She reports she was on vacation in the [place] and had similar symptoms there as well (she did not seek care at that time). Patient also reports flank pain and states she has urinary frequency; she denies any dysuria or hematuira. Patient otherwise denies any chest pain, shortness of breath, or nausea, vomiting, diarrhea. o additional complaints. PMD: Dr. Bernal Past Medical History Reviewed: Historical Data, Nursing Documentation, Vital Signs Vital Signs: Last Vital Signs Temp 98.9 F 08/23/18 09:56 Pulse 120 H 08/23/18 09:56 Resp 16 08/23/18 09:56 BP 114/75 08/23/18 09:56 Pulse Ox 98 08/23/18 09:56 - Medical History PMH: Diabetes (type I) Denies: HIV, Chronic Kidney Disease - Surgical History Surgical History: No Surg Hx - Family History Family History: States: Hypertension Denies: Diabetes - Immunization History Hx Tetanus Toxoid Vaccination: Yes Hx Influenza Vaccination: Yes Hx Pneumococcal Vaccination: No - Home Medications Home Medications: Ambulatory Orders Medication Instructions Recorded Insulin Lispro [humALOG] 0 - 10 units SC TID PRN 04/23/17 Insulin Glargine, Recombina 20 units SC DAILY #0 04/24/17 [Lantus] Ondansetron ODT [Zofran ODT] 4 mg PO Q8 PRN #12 odt 07/31/17 Polyethylene Glycol 3350 [Miralax] 1 tbs PO DAILY PRN #1 bottle 02/24/18 Ibuprofen [Motrin] 600 mg PO TID 7 Days tab 08/23/18 Nitrofurantoin Macrocrystals 100 mg PO BID #10 cap 08/23/18 [Macrobid] - Allergies Allergies/Adverse Reactions: Allergies Allergy/AdvReac Type Severity Reaction Status Date / Time Penicillins Allergy unknown Verified 08/23/18 10:15 Review of Systems ROS Statement: Except As Marked, All Systems Reviewed And Found Negative Constitutional: Positive for: Fever, Weakness Cardiovascular: Negative for: Chest Pain Respiratory: Positive for: Cough. Negative for: Shortness of Breath Gastrointestinal: Positive for: Abdominal Pain. Negative for: Nausea, Vomiting Genitourinary Female: Positive for: Frequency. Negative for: Dysuria, Hematuria Musculoskeletal: Positive for: Back Pain Physical Exam - Reviewed Nursing Documentation Reviewed: Yes Vital Signs Reviewed: Yes - Physical Exam Appears: Positive for: Non-toxic Head Exam: Positive for: ATRAUMATIC, NORMAL INSPECTION, NORMOCEPHALIC Skin: Positive for: Normal Color Eye Exam: Positive for: Normal appearance ENT: Positive for: Nasal Congestion. Negative for: Pharyngeal Erythema Neck: Positive for: Normal, Supple Cardiovascular/Chest: Positive for: Regular Rate, Rhythm Respiratory: Positive for: Normal Breath Sounds. Negative for: Wheezing Gastrointestinal/Abdominal: Positive for: Soft, Tenderness (mild suprapubic tenderness). Negative for: Mass, Guarding, Rebound Back: Positive for: Other (mild right flank tenderness) Extremity: Positive for: Normal ROM. Negative for: Pedal Edema Neurologic/Psych: Positive for: Alert, Oriented. Negative for: Motor/Sensory Deficits - Laboratory Results Result Diagrams: 08/23/18 11:25 08/23/18 11:25 Lab Results: urine wbc, elevated blood sugar - ECG ECG: Positive for: Interpreted By Me, Viewed By Me ECG Rhythm: Positive for: Sinus Rhythm O2 Sat by Pulse Oximetry: 98 (RA) Pulse Ox Interpretation: Normal - Progress ED Course And Treament: 1405: Stable. Feels much better. Will dc. Sugar improved. AAOx3. UTI. No abd pain. Medical Decision Making Medical Decision Making: Impression: 23yo female with cough, congestion UTI symptoms Plan: -- Patient noted to have blood sugar of 500 during triage -- IV Fluids -- Toradol 15mg IV -- Labs -- Urinalysis Scribe Attestation: Documented by Danielle Donovan acting as a scribe for Jose Rios MD. Provider Attestation: All medical record entries made by the Scribe were at my direction and personally dictated by me. I have reviewed the chart and agree that the record accurately reflects my personal performance of the history, physical exam, medical decision making, and the department course for this patient. I have also personally directed, reviewed, and agree with the discharge instructions and disposition. Disposition - Clinical Impression Clinical Impression: Hyperglycemia, UTI (urinary tract infection) - Patient ED Disposition Is Patient to be Admitted: No Counseled Patient/Family Regarding: Studies Performed, Diagnosis, Need For Followup - Disposition Referrals: [facility] [Outside] - 08/24/18 Disposition: Routine/Home Disposition Time: 14:06 Condition: STABLE Additional Instructions: Return if not better in 3 days. Prescriptions: Ibuprofen [Motrin] 600 mg PO TID 7 Days tab Nitrofurantoin Macrocrystals [Macrobid] 100 mg PO BID #10 cap Instructions: Urinary Tract Infections in Adults, Hyperglycemia, Adult (DC)
[2018-08-23 11:38] LABS: BASO % 0.4 % (0.0-2.0); EOS % 0.4 % (0.0-4.0); HEMOGLOBIN 12.9 g/dL (12.0-16.0); LYMPH # 1.7 K/uL (1.0-4.3); LYMPH % 20.8 % (20.0-40.0); MEAN CELL VOLUME 88.6 fl (81.0-99.0); MEAN CORPUSCULAR HEMOGLOBIN 28.5 pg (27.0-31.0); MEAN CORPUSCULAR HGB CONC 32.2 g/dL (33.0-37.0); MEAN PLATELET VOLUME 7.7 fl (7.2-11.7); MONO # 0.6 K/uL (0.0-0.8); MONO % 7.2 % (0.0-10.0); NEUT # 5.7 K/uL (1.8-7.0); NEUT % 71.2 % (50.0-75.0); NRBC % 0.2 % (0.0-0.0); RBC 4.52 Mil/uL (3.80-5.20); RED CELL DISTRIBUTION WIDTH 12.9 % (11.5-14.5)
[2018-08-23 11:45] LABS: VENOUS BLOOD GAS PCO2 54 mmHg (40-60); VENOUS BLOOD GAS PO2 17 mm/Hg (30-55); VENOUS BLOOD PH 7.35 (7.32-7.43)
[2018-08-23] MEDS ORDERED: Insulin Regular 100 units/ml IV STA ×2 (12:10→14:21)
[2018-08-23 12:16] LABS: SQUAMOUS EPITHIAL < 1 /hpf (0-5); URINE BACTERIA RARE (<OCC); URINE BILIRUBIN NEGATIVE (NEGATIVE); URINE BLOOD MODERATE (NEGATIVE); URINE CLARITY CLEAR (Clear); URINE COLOR STRAW (YELLOW); URINE GLUCOSE (UA) >=500 mg/dL (NEGATIVE); URINE LEUKOCYTE ESTERASE TRACE Leu/uL (Negative); URINE PROTEIN 30 mg/dL (NEGATIVE); URINE UROBILINOGEN 0.2-1.0 mg/dL (0.2-1.0)
[2018-08-23 12:21] LABS: ALB/GLOB RATIO 1.1 (1.0-2.1); ALBUMIN 4.1 g/dL (3.5-5.0); ALT/SGPT 22 U/L (9-52); AST/SGOT 17 U/L (14-36); BLOOD UREA NITROGEN 12 mg/dl (7-17); CALCIUM 9.3 mg/dL (8.4-10.2); GFR NON-AFRICAN AMERICAN > 60
[2018-08-23] MEDS ORDERED: Insulin Regular 100 units/ml ONE ×2 (12:46→14:34)
[2018-08-23 15:50] VITALS: BP 105/66; PULSE 98; RESP 16; TEMP 99.1; O2SAT 99
--- NOTE | 2018-08-23 19:40 | CARD ---
APPROVED REPORT Date of service: 08/23/2018 EKG Measurement Heart [id number] <Conclusion> Normal sinus rhythm Low voltage QRS Borderline ECG
== END 2018-08-23 16:09 | disposition home or self-care (01) ==
LOC: H.ER 09:41
DX: E11.65 Type 2 diabetes mellitus with hyperglycemia (principal); N39.0 Urinary tract infection, site not specified; Z79.4 Long term (current) use of insulin; Z88.0 Allergy status to penicillin
CPT/HCPCS: 80053; 81003; 81025; 82803; 82948; 85025; 87086; 87181; 93005; 96361; 96374; 96375; 96376; 99285; J1885; J7030

== ENCOUNTER 2018-10-04 17:45 | Emergency (ER) | payer BC, SELFPAY ==
[2018-10-04 17:45] VITALS: BMI 22.1
[2018-10-04 18:27] VITALS: RESP 16
[2018-10-04] MEDS ORDERED: Sodium Chloride 0.9% 1,000 ML IV STA (19:54)
--- NOTE | 2018-10-04 20:34 | ED PDOC ---
HPI: Abdomen Time Seen by Provider: 10/04/18 18:55 Chief Complaint (Nursing): Abdominal Pain Chief Complaint (Provider): Abdominal Pain History Per: Patient History/Exam Limitations: no limitations Onset/Duration Of Symptoms: Days (x1) Current Symptoms Are (Timing): Still Present Additional Complaint(s): 23 year old female with past history of insulin dependent diabetes, presents to the emergency department with a complaint of abdominal pain associated with left arm pain, nausea, and generalized weakness since 1300 earlier today. she has insulin pump but its detached. Patient states her initial glucose was 27, in which, she drank some orange juice then glucose elevated to 250. here here sugar is high. She denies any fever, chills, decreased appetite, chest pain, or shortness of breath. also with mild midepigastric pain, thinks its gastritis. no vomiting PCP: none provided Past Medical History Reviewed: Historical Data, Nursing Documentation, Vital Signs Vital Signs: Last Vital Signs Temp 98.6 F 10/04/18 18:25 Pulse 78 10/04/18 18:25 Resp 16 10/04/18 18:25 BP 122/81 10/04/18 18:25 Pulse Ox 98 10/04/18 18:25 - Medical History PMH: Diabetes (type I) Denies: HIV, Chronic Kidney Disease - Surgical History Surgical History: No Surg Hx - Family History Family History: States: Hypertension Denies: Diabetes - Social History Current smoker - smoking cessation education provided: No Alcohol: None - Immunization History Hx Tetanus Toxoid Vaccination: Yes Hx Influenza Vaccination: Yes Hx Pneumococcal Vaccination: No - Home Medications Home Medications: Ambulatory Orders Medication Instructions Recorded Insulin Lispro [humALOG] 0 - 10 units SC TID PRN 04/23/17 Insulin Glargine, Recombina 20 units SC DAILY #0 04/24/17 [Lantus] Ondansetron ODT [Zofran ODT] 4 mg PO Q8 PRN #12 odt 07/31/17 Polyethylene Glycol 3350 [Miralax] 1 tbs PO DAILY PRN #1 bottle 02/24/18 Ibuprofen [Motrin] 600 mg PO TID 7 Days tab 08/23/18 Nitrofurantoin Macrocrystals 100 mg PO BID #10 cap 08/23/18 [Macrobid] - Allergies Allergies/Adverse Reactions: Allergies Allergy/AdvReac Type Severity Reaction Status Date / Time Penicillins Allergy unknown Verified 10/04/18 18:23 Review of Systems ROS Statement: Except As Marked, All Systems Reviewed And Found Negative Constitutional: Positive for: Weakness. Negative for: Fever, Chills Cardiovascular: Negative for: Chest Pain Respiratory: Negative for: Shortness of Breath Gastrointestinal: Positive for: Nausea, Abdominal Pain. Negative for: Other (decreased appetite) Musculoskeletal: Positive for: Arm Pain (left-sided) Physical Exam - Reviewed Nursing Documentation Reviewed: Yes Vital Signs Reviewed: Yes - Physical Exam Appears: Positive for: Well, Non-toxic, No Acute Distress Head Exam: Positive for: ATRAUMATIC, NORMAL INSPECTION, NORMOCEPHALIC Skin: Positive for: Normal Color Eye Exam: Positive for: Normal appearance, EOMI, PERRL ENT: Positive for: Normal ENT Inspection Neck: Positive for: Normal Cardiovascular/Chest: Positive for: Regular Rate, Rhythm Respiratory: Positive for: Normal Breath Sounds. Negative for: Respiratory Distress Gastrointestinal/Abdominal: Positive for: Normal Exam, Bowel Sounds, Soft. Negative for: Tenderness Back: Positive for: Normal Inspection Extremity: Positive for: Normal ROM (upper/lower) Neurologic/Psych: Positive for: Alert, Oriented. Negative for: Motor/Sensory Deficits - Laboratory Results Result Diagrams: 10/04/18 20:34 10/04/18 20:34 - ECG ECG: Positive for: Interpreted By Me ECG Rhythm: Positive for: Normal QRS, Sinus Rhythm Rate: 75 O2 Sat by Pulse Oximetry: 98 (RA) Pulse Ox Interpretation: Normal Medical Decision Making Medical Decision Making: chief complaint. elevated sugar. mild epigastric pain. normal anion gap, no ketones in urine lipase normal, pt imporved with pepcid, likely gastritis will wait for repeat sugar after insulin signout to dr reich pending repeat, reecal Disposition - Clinical Impression Clinical Impression: IDDM (insulin dependent diabetes mellitus) - Patient ED Disposition Is Patient to be Admitted: Transfer of Care - Disposition Disposition: Transfer of Care Disposition Time: 23:00 Condition: STABLE Forms: [facility] (Swazi)
[2018-10-04 20:47] LABS: BASO % 0.8 % (0.0-2.0); EOS # 0.1 K/uL (0.0-0.7); EOS % 1.1 % (0.0-4.0); HEMOGLOBIN 13.1 g/dL (12.0-16.0); LYMPH # 2.7 K/uL (1.0-4.3); LYMPH % 49.3 % (20.0-40.0); MEAN CELL VOLUME 84.8 fl (81.0-99.0); MEAN CORPUSCULAR HEMOGLOBIN 27.7 pg (27.0-31.0); MEAN CORPUSCULAR HGB CONC 32.6 g/dL (33.0-37.0); MEAN PLATELET VOLUME 7.8 fl (7.2-11.7); MONO # 0.3 K/uL (0.0-0.8); MONO % 4.7 % (0.0-10.0); NEUT # 2.4 K/uL (1.8-7.0); NEUT % 44.1 % (50.0-75.0); RBC 4.73 Mil/uL (3.80-5.20); RED CELL DISTRIBUTION WIDTH 14.1 % (11.5-14.5); WHITE BLOOD COUNT 5.4 K/uL (4.8-10.8)
[2018-10-04 20:53] LABS: SQUAMOUS EPITHIAL 5 /hpf (0-5); URINE BACTERIA RARE (<OCC); URINE BILIRUBIN NEGATIVE (NEGATIVE); URINE BLOOD NEGATIVE (NEGATIVE); URINE CLARITY SLIGHTY-CLOUDY (Clear); URINE COLOR YELLOW (YELLOW); URINE GLUCOSE (UA) >=500 mg/dL (NEGATIVE); URINE LEUKOCYTE ESTERASE NEG Leu/uL (Negative); URINE PROTEIN NEGATIVE (NEGATIVE); URINE UROBILINOGEN 0.2-1.0 mg/dL (0.2-1.0)
[2018-10-04 20:57] LABS: ALB/GLOB RATIO 1.2 (1.0-2.1); ALBUMIN 4.5 g/dL (3.5-5.0); BLOOD UREA NITROGEN 12 mg/dl (7-17); CALCIUM 9.5 mg/dL (8.4-10.2); GFR NON-AFRICAN AMERICAN > 60
[2018-10-04 20:59] LABS: ALT/SGPT 18 U/L (9-52); AST/SGOT 25 U/L (14-36)
[2018-10-04] MEDS ORDERED: Insulin Regular 100 units/ml SC STA (21:48)
[2018-10-04] MEDS ORDERED: Insulin Regular 100 units/ml ONE (22:44)
--- NOTE | 2018-10-04 23:19 | ED PDOC ---
- Laboratory Results Result Diagrams: 10/04/18 20:34 10/04/18 20:34 Lab Results: Troponin I < 0.0120 ng/mL (0.00-0.120) 10/04/18 21:16 Total Bilirubin 0.4 mg/dl (0.2-1.3) 10/04/18 20:34 AST 25 U/L (14-36) 10/04/18 20:34 ALT 18 U/L (9-52) 10/04/18 20:34 Alkaline Phosphatase 110 U/L (38-126) 10/04/18 20:34 Total Protein 8.3 G/DL (6.3-8.2) H 10/04/18 20:34 Albumin 4.5 g/dL (3.5-5.0) 10/04/18 20:34 Globulin 3.8 gm/dL (2.2-3.9) 10/04/18 20:34 Albumin/Globulin Ratio 1.2 (1.0-2.1) 10/04/18 20:34 Lipase 62 U/L (23-300) 10/04/18 22:40 Urine Color Yellow (YELLOW) 10/04/18 20:34 Urine Clarity Slighty-cloudy (Clear) 10/04/18 20:34 Urine pH 7.0 (5.0-8.0) 10/04/18 20:34 Ur Specific [place] 1.022 (1.003-1.030) 10/04/18 20:34 Urine Protein Negative mg/dL (NEGATIVE) 10/04/18 20:34 Urine Glucose (UA) >=500 mg/dL (NEGATIVE) 10/04/18 20:34 Urine Ketones Negative mg/dL (NEGATIVE) 10/04/18 20:34 Urine Blood Negative (NEGATIVE) 10/04/18 20:34 Urine Nitrate Negative (NEGATIVE) 10/04/18 20:34 Urine Bilirubin Negative (NEGATIVE) 10/04/18 20:34 Urine Urobilinogen 0.2-1.0 mg/dL (0.2-1.0) 10/04/18 20:34 Ur Leukocyte Esterase Neg Yuri/uL (Negative) 10/04/18 20:34 Urine RBC (Auto) 1 /hpf (0-3) 10/04/18 20:34 Urine Microscopic WBC 1 /hpf (0-5) 10/04/18 20:34 Ur Squamous Epith Cells 5 /hpf (0-5) 10/04/18 20:34 Urine Bacteria Rare (<OCC) 10/04/18 20:34 - ECG O2 Sat by Pulse Oximetry: 98 (RA) Pulse Ox Interpretation: Normal Medical Decision Making Medical Decision Makin:00 Patient endorsed to this provider by Dr. Croft pending repeat glucose and reevaluation. She reports improvement of symptoms after medications were admini stered. Patient is regularly on an insulin pump and will likely be discharged home if glucose is unremarkable. 01:21 Accucheck shows signs of improvement. Patient reports improvement of symptoms. Diagnosis is hyperglycemia and uncontrolled diabetes Scribe Attestation: Documented by Jeannie Aguilera acting as a scribe for Sajan Banegas MD Provider Scribe Attestation: All medical record entries made by the Scribe were at my direction and personally dictated by me. I have reviewed the chart and agree that the record accurately reflects my personal performance of the history, physical exam, m edical decision making, and the department course for this patient. I have also personally directed, reviewed, and agree with the discharge instructions and disposition. Disposition - Clinical Impression Clinical Impression: IDDM (insulin dependent diabetes mellitus) - POA Present On Arrival: None - Disposition Disposition: Routine/Home Disposition Time: 01:30 Condition: STABLE Instructions: Type 1 Diabetes Forms: [employer] ([place]), [facility] ED School/Work Excuse
[2018-10-05] MEDS ORDERED: Sodium Chloride 0.9% 1,000 ML IV STA (00:27)
--- NOTE | 2018-10-05 08:29 | RAD ---
Date of service: 10/04/2018 HISTORY: l arm pain COMPARISON: 01/24/2017 TECHNIQUE: Chest PA and lateral FINDINGS: LUNGS: No active pulmonary disease. PLEURA: No significant pleural effusion identified. No pneumothorax apparent. CARDIOVASCULAR: No aortic atherosclerotic calcification present. Normal cardiac size. No pulmonary vascular congestion. OSSEOUS STRUCTURES: No significant abnormalities. VISUALIZED UPPER ABDOMEN: Normal. OTHER FINDINGS: None. IMPRESSION: No active disease. No interval pathology noted
[2018-10-05 09:27] VITALS: O2SAT 98
[2018-10-05 09:30] VITALS: BP 119/70; PULSE 76; TEMP 98.8
--- NOTE | 2018-10-05 15:19 | CARD ---
APPROVED REPORT Date of service: 10/04/2018 EKG Measurement Heart [id number] <Conclusion> Normal sinus rhythm Normal Electrocardiogram
== END 2018-10-05 01:40 | disposition home or self-care (01) ==
LOC: H.ER 17:45
DX: E11.9 Type 2 diabetes mellitus without complications (principal); Z79.4 Long term (current) use of insulin; Z88.0 Allergy status to penicillin
CPT/HCPCS: 71046; 80053; 81003; 81025; 82948; 83690; 84484; 85025; 87086; 93005; 96360; 96361; 96374; 99284; J7030